=== PATIENT | female | born 1990 | race African-American/Black ===

== ENCOUNTER 2017-03-10 12:05 | Emergency (ER) | payer SELFPAY ==
[~2017-03-10] VITALS: Ht 170.2 cm; Wt 113.4 kg
[2017-03-10] MEDS ORDERED: NKM (12:16)
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
[2017-03-10] MEDS ORDERED: TYLENOL EXTRA500 MG ORAL (13:04)
[2017-03-10] MEDS ORDERED: BACITRACIN-P28.35 GM TP (13:04)
[2017-03-10 13:18] VITALS: BP 137/80
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
== END 2017-03-10 13:18 | disposition home or self-care (01) ==
LOC: EMR 12:30
DX: S63.616A Unspecified sprain of right little finger, initial encounter (principal); S60.312A Abrasion of left thumb, initial encounter; V43.52XA Car driver injured in collision with other type car in traffic accident, initial encounter; Y92.410 Unspecified street and highway as the place of occurrence of the external cause
CPT/HCPCS: 99283